=== PATIENT | female | born 1970 | race Caucasian/White ===

== ENCOUNTER 2019-05-08 13:51 | Outpatient (CLI) | payer BC ==
[~2019-05-08 13:51] MED LIST: Magnevist 469MG/ML 20 ML VIAL ONE
--- NOTE | 2019-05-08 15:31 | MRI ---
Exam: Brain MRI and internal auditory canal MRI with and without contrast HISTORY: Conductive sensorineural hearing loss, right ear COMPARISON: None FINDINGS: Brain MRI: Gradient echo sequence: No hemorrhage Calvarium: Appropriate T1 marrow signal intensity Midline brain parenchyma: Unremarkable Cerebrum:No parenchymal mass, mass effect or midline shift. Brain volume, age-appropriate. Cortical g ray-white matter differentiation is preserved. White matter: There is a solitary nonenhancing, non restricting T2 hyperintense focus in the posterio r right centrum semiovale measuring 0.4 cm. There is a smaller similar signal intensity in the medial right frontal lobe subcortical white matter measuring 0.3 cm. Ventricles: No evidence of hydrocephalus. Sinuses and mastoid air cells: Adequate aeration Diffusion: Central arterial flow is maintained. Absent restricted diffusion. Postcontrast images: No pathologic enhancement of the brain parenchyma. Internal auditory canal MRI: Symmetric signal intensity of the VII/VIII as well as V cranial nerve complexes. Appropriate signal intensity of the internal auditory canal and inner ear structures. No abnormal enh ancement. IMPRESSION: 1. Unremarkable pre and postcontrast brain MRI 2. Unremarkable MRI of the internal auditory canals as well as the VII/VIII cranial nerve complexes. 3. Nonspecific white matter T2 hyperintensities as described above. Follow-up imaging in 6 months is recommended.
== END 2019-05-08 13:52 | disposition home or self-care (01) ==
LOC: BICMRI 13:51
PROVIDERS: ATTEND Otolaryngology
DX: H90.A31 Mixed conductive and sensorineural hearing loss, unilateral, right ear with restricted hearing on the contralateral side (principal); R90.82 White matter disease, unspecified
CPT/HCPCS: 70553; A9579